=== PATIENT | male | born 1930 | race Caucasian/White ===

== ENCOUNTER 2017-07-20 01:50 | Emergency (ER) | payer MEDICARE, BC ==
[~2017-07-20] VITALS: Ht 170.2 cm; Wt 79.4 kg
[~2017-07-20 01:50] MED LIST: ALLO300T2 PO; ASPI-1152 PO; ATEN25TA PO; CELE200C PO; FINA5TAB3 PO; LOVA40TA2 PO; PANT40TA4 PO; TERA5CAP4 PO
[2017-07-20] MEDS ORDERED: ASPI81TA31 PO (02:07)
[2017-07-20] MEDS ORDERED: TERA5CAP4 PO (02:07)
[2017-07-20] MEDS ORDERED: ATOR40TA PO (02:07)
[2017-07-20] MEDS ORDERED: FINA5TAB3 PO (02:07)
[2017-07-20] MEDS ORDERED: ALLO300T2 PO (02:07)
[2017-07-20] MEDS ORDERED: KETOROLAC TROMETHAMINE 15 MG INJ IV ONE (03:00)
[2017-07-20] MEDS ORDERED: METOCLOPRAMIDE HCL 10 MG/2 ML VIAL IV ONE (03:00)
--- NOTE | 2017-07-20 03:38 | NUR ---
PT IN BED W/ SPOUSE AT BEDSIDE. PT IS A&OX4. PT HAS REGULAR UNLABORED BREATHING. ALL LABS DRAWN. NO MEDS GIVEN AT THIS TIME; HOWEVER, PT STATES SIGNIFICANTLY LESS ABDOMINAL PAIN.
[2017-07-20 03:41] LABS: BASOPHILS # (AUTO) 0.1 K/uL (0.0-8.0); BASOPHILS % (AUTO) 0.6 % (0.0-2.0); EOSINOPHILS # (AUTO) 0.1 K/uL (0.0-0.7); EOSINOPHILS % (AUTO) 0.8 % (0.0-7.0); HEMATOCRIT 41.3 % (36.7-47.1); HEMOGLOBIN 14.2 g/dL (12.5-16.3); LYMPHOCYTES # (AUTO) 0.6 K/uL (20.0-40.0); LYMPHOCYTES % (AUTO) 5.4 % (20.5-51.5); MEAN CORPUSCULAR HEMOGLOBIN 30.9 uug (23.8-33.4); MEAN CORPUSCULAR HGB CONC 34 g/dL (32.5-36.3); MONOCYTES # (AUTO) 0.3 K/uL (2.0-10.0); MONOCYTES % (AUTO) 2.6 % (0.0-11.0); NEUTROPHILS # (AUTO) 9.8 K/uL (1.8-8.9); NEUTROPHILS % (AUTO) 90.6 % (38.5-71.5); PLATELET COUNT (AUTO) 265 K/uL (152-348); RED BLOOD CELL COUNT(AUTO) 4.58 MIL/uL (4.06-5.63); WHITE BLOOD COUNT (AUTO) 10.8 K/uL (3.6-10.2)
[2017-07-20] MEDS ORDERED: METOCLOPRAMIDE HCL 10 MG/2 ML VIAL ONE (03:45)
[2017-07-20] MEDS ORDERED: KETOROLAC TROMETHAMINE 15 MG INJ ONE (03:45)
[2017-07-20 04:08] LABS: CARBON DIOXIDE 26 mmol/L (21-32); CHLORIDE 103 mmol/L (98-107); CREATININE 0.9 mg/dL (0.6-1.3); GLUCOSE 131 mg/dL (74-106); POTASSIUM 3.9 mmol/L (3.5-5.1); UREA NITROGEN, BLOOD 19 mg/dL (7-18)
[2017-07-20 04:09] LABS: *BILIRUBIN,URIN NEGATIVE (NEGATIVE); *BLOOD, URINE NEGATIVE (NEGATIVE); *CLARITY,URINE CLEAR (CLEAR); *COLOR,URINE YELLOW (YELLOW); *KETONES,URINE NEGATIVE (NEGATIVE); *PROTEIN,URINE NEGATIVE (NEGATIVE); *UROBILINOGEN,URINE 0.2 E.U./dl (NORMAL); LEUKOCYTE ESTERASE ,URINE NEGATIVE (NEGATIVE); NITRITE, URINE NEGATIVE (NEGATIVE); PH,URINE 7.5 (5.0-8.0); UGLUCOSE NEGATIVE (NEGATIVE)
[2017-07-20 04:14] LABS: ALANINE AMINOTRANSFERASE 33 U/L (16-63); ALKALINE PHOSPHATASE 91 U/L (50-136); ASPARTATE AMINOTRANSFERASE 29 U/L (15-37); BILIRUBIN,DIRECT 0.1 mg/dL (0.0-0.2); BILIRUBIN,TOTAL 0.5 mg/dL (0.2-1.0); LIPASE 111 U/L (73-393); TOTAL PROTEIN, SERUM 7.5 g/dL (6.4-8.2)
[2017-07-20 04:23] LABS: BACTERIA,URINE NONE SEEN /HPF (NONE SEEN); RBC,URINE 0-3 /HPF (0-3); SQUAMOUS EPITHELIAL CELL,UR FEW /HPF (NONE SEEN); URINE AMORPHOUS PHOSPHATES FEW /HPF; WBC,URINE 0-3 /HPF (0-3)
--- NOTE | 2017-07-20 05:37 | NUR ---
Patient discharged to home in stable conditon. Written and verbal after care instructions given. Patient verbalizes understanding of instructions.
[2017-07-20 05:39] VITALS: BP 140/18
== END 2017-07-20 05:38 | disposition home or self-care (01) ==
LOC: ER 01:53
DX: K56.50 Intestinal adhesions [bands], unspecified as to partial versus complete obstruction (principal); K40.90 Unilateral inguinal hernia, without obstruction or gangrene, not specified as recurrent; K42.9 Umbilical hernia without obstruction or gangrene; N40.0 Benign prostatic hyperplasia without lower urinary tract symptoms; I10 Essential (primary) hypertension; Z79.82 Long term (current) use of aspirin
CPT/HCPCS: 36415; 71045; 74176; 80048; 80076; 81001; 83605; 83690; 84484; 85025; 85730; 87040 ×2; 87086; 93005; 99285; A4663; 70030-TC; J1885; J2765

== ENCOUNTER 2017-08-21 09:51 | Emergency (ER) | payer MEDICARE, BC ==
[~2017-08-21] VITALS: Ht 167.6 cm; Wt 83.9 kg
[~2017-08-21 09:51] MED LIST changes: +ASPI81TA31 PO; +ATOR40TA PO
[2017-08-21] MEDS ORDERED: NITROGLYCERIN OINT 1 GM PACKET TP ONE ×2 (10:03→10:15)
--- NOTE | 2017-08-21 10:15 | NUR ---
[facility] WAS CALLED BY DR JACKSNO. CODE STEMI PROTOCOL STARTED.
--- NOTE | 2017-08-21 10:16 | NUR ---
LIST OF MEDS REVIEWED WITH PATIENT.
--- NOTE | 2017-08-21 10:18 | NUR ---
[facility] was called for pt's transfer due to ST elevation [place]. talked to BELLA from [facility]. according to her [facility] closed for [facility] [place] transfers. dr pace notified.
--- NOTE | 2017-08-21 10:18 | NUR ---
pt is in room #1b. dr pace evaluated the pt.
[2017-08-21 10:20] LABS: BASOPHILS % (AUTO) 0.6 % (0.0-2.0); EOSINOPHILS # (AUTO) 0.2 K/uL (0.0-0.7); EOSINOPHILS % (AUTO) 2.6 % (0.0-7.0); HEMATOCRIT 41.6 % (36.7-47.1); HEMOGLOBIN 13.8 g/dL (12.5-16.3); LYMPHOCYTES # (AUTO) 2.1 K/uL (20.0-40.0); LYMPHOCYTES % (AUTO) 27.8 % (20.5-51.5); MEAN CORPUSCULAR HEMOGLOBIN 29.9 uug (23.8-33.4); MEAN CORPUSCULAR HGB CONC 33 g/dL (32.5-36.3); MEAN CORPUSCULAR VOLUME 90.3 fL (73.0-96.2); MONOCYTES # (AUTO) 0.3 K/uL (2.0-10.0); MONOCYTES % (AUTO) 4.2 % (0.0-11.0); NEUTROPHILS % (AUTO) 64.8 % (38.5-71.5); PLATELET COUNT (AUTO) 196 K/uL (152-348); WHITE BLOOD COUNT (AUTO) 7.7 K/uL (3.6-10.2)
--- NOTE | 2017-08-21 10:25 | NUR ---
[facility] WAS CALLED FOR PT'S TRANSFER. PT'S PAPERWORK WAS FAXWED TO THEM. DR JACKSON TALKED TO TRANSFER CENTER INGOT WEIGHER.
[2017-08-21] MEDS ORDERED: MORPHINE SULFATE 4 MG/1 ML DISP.SYRIN ONE (10:27)
[2017-08-21] MEDS ORDERED: ONDANSETRON 4 MG/2 ML VIAL ONE (10:27)
[2017-08-21] MEDS ORDERED: ONDANSETRON IV *ER 4 MG/2 ML VIAL IV ONE (10:30)
[2017-08-21] MEDS ORDERED: HYDROMORPHONE 1 MG/1 ML DISP.SYRIN IV ONE ×2 (10:30→10:45)
[2017-08-21 10:33] LABS: CARBON DIOXIDE 24 mmol/L (21-32); CHLORIDE 104 mmol/L (98-107); CREATININE 0.9 mg/dL (0.6-1.3); GLUCOSE 150 mg/dL (74-106); POTASSIUM 3.6 mmol/L (3.5-5.1); UREA NITROGEN, BLOOD 22 mg/dL (7-18)
--- NOTE | 2017-08-21 10:40 | NUR ---
DR JACKSON TALKED TO [facility] RECOVERY OPERATOR HELPER. THEY ACCEPTIN PT. DR BECKMAN ACCEPTING THE PT. REPORT GIVEN TO [facility] TRANSFER SHARAD LOVE.
[2017-08-21] MEDS ORDERED: HYDROMORPHONE 2 MG/1 ML DISP.SYRIN ONE (10:43)
[2017-08-21 10:45] LABS: ALANINE AMINOTRANSFERASE 31 U/L (16-63); ALKALINE PHOSPHATASE 77 U/L (50-136); ASPARTATE AMINOTRANSFERASE 68 U/L (15-37); BILIRUBIN,DIRECT 0.1 mg/dL (0.0-0.2); BILIRUBIN,TOTAL 0.7 mg/dL (0.2-1.0); TOTAL PROTEIN, SERUM 6.7 g/dL (6.4-8.2)
[2017-08-21] MEDS ORDERED: HEPARIN SODIUM,PORCINE/PF 50 UNIT/5 ML SYR IV STA (10:53)
[2017-08-21 10:56] VITALS: BP 105/59
[2017-08-21] MEDS ORDERED: ASPIRIN 81 MG TAB.CHEW ONE (10:58)
[2017-08-21] MEDS ORDERED: HEPARIN SODIUM,PORCINE 5,000 UNITS/ML VIAL ONE (10:59)
[2017-08-21] MEDS ORDERED: ASPIRIN 81 MG TAB.CHEW PO ONE (11:00)
--- NOTE | 2017-08-21 11:08 | NUR ---
Chance hill in ED - 08/21/17 at 1113 by [facility] WAS CALLED FOR PT TRANSFER ACCORDING TO PT'S REQUEST AND DR RENETTA ARANGO. TALKED TO [employer]. [facility]'S PAPERWORK WAS FAXED TO THEM.
--- NOTE | 2017-08-21 11:19 | NUR ---
CRITICAL TRANSFER TEAM FROM [facility] TRANSFERED PT TO [facility]IA [facility]. DR JACKSON TALKED TO LATEX FASHIONS DESIGNER FROM [facility] TEAM.
== END 2017-08-21 11:26 | disposition short-term general hospital (02) ==
LOC: ER 09:51
DX: I21.9 Acute myocardial infarction, unspecified (principal); I10 Essential (primary) hypertension; Z79.82 Long term (current) use of aspirin; Z79.899 Other long term (current) drug therapy
CPT/HCPCS: 36415; 70030-TC; 71045; 85025; 85730; 86850; 86900; 86901; 93005; A4663; J1170; J1642; J1644; J2270; J2405

== ENCOUNTER 2018-05-22 14:44 | Emergency (ER) | payer MEDICARE, BC ==
[~2018-05-22] VITALS: Ht 167.6 cm; Wt 83.9 kg
[~2018-05-22 14:44] MED LIST changes: -ASPI81TA31 PO; -ATEN25TA PO; -CELE200C PO; -LOVA40TA2 PO; -PANT40TA4 PO
--- NOTE | 2018-05-22 15:25 | NUR ---
SCALP INJURY CLEANED AND DRESSED, PT D/C'D HOME, ACI GIVEN. PT AMBULATED W/O DIFF/TOOK ALL BELONGINGS.
[2018-05-22 15:26] VITALS: BP 139/68
== END 2018-05-22 15:26 | disposition home or self-care (01) ==
LOC: ER 14:44
DX: S00.01XA Abrasion of scalp, initial encounter (principal); I10 Essential (primary) hypertension; Z79.82 Long term (current) use of aspirin; Z79.899 Other long term (current) drug therapy; W22.8XXA Striking against or struck by other objects, initial encounter; Y93.89 Activity, other specified; Y92.89 Other specified places as the place of occurrence of the external cause; Y99.8 Other external cause status
CPT/HCPCS: A4663

== ENCOUNTER 2019-03-13 00:53 | Inpatient (IN) | payer MEDICARE, BC ==
[~2019-03-13] VITALS: Ht 167.6 cm; Wt 79.4 kg
[2019-03-13] MEDS ORDERED: CLOP75TA15 PO (01:17)
[2019-03-13] MEDS ORDERED: LOSA25TA27 PO (01:17)
--- NOTE | 2019-03-13 01:22 | NUR ---
DR. BERKOWITZ AT BEDSIDE FOR MSE.
[2019-03-13] MEDS ORDERED: ONDANSETRON ODT 4 MG TAB.RAPDIS SL ONE (01:45)
[2019-03-13] MEDS ORDERED: HYDROCODONE/APAP 5-325MG TABLET ONE (01:45)
[2019-03-13] MEDS ORDERED: ONDANSETRON ODT 4 MG TAB.RAPDIS ONE (01:45)
[2019-03-13] MEDS ORDERED: HYDROCODONE/APAP 5-325MG TABLET PO ONE (01:45)
--- NOTE | 2019-03-13 02:10 | NUR ---
PATIENT C/O BACK WHILE LAYING DOWN IN BED, REQUESTED PAIN MEDICATION. DR. BERKOWITZ NOTIFIED AND NEW ORDERS RECEIVED. PATIENT THEN SAT UP IN CHAIR AND STATED THAT PAIN IN BACK IS BETTER NOW AND REFUSED IV MEDICATION AT THIS TIME. DR. BERKOWITZ AWARE. WILL CONTINUE TO MONITOR PATIENT.
[2019-03-13] MEDS ORDERED: HYDROMORPHONE 1 MG/1 ML DISP.SYRIN IV ONE ×2 (02:15→04:15)
[2019-03-13 02:19] LABS: BASOPHILS % (AUTO) 0.5 % (0.0-2.0); EOSINOPHILS # (AUTO) 0.1 K/uL (0.0-0.7); EOSINOPHILS % (AUTO) 1.4 % (0.0-7.0); HEMATOCRIT 38.6 % (36.7-47.1); HEMOGLOBIN 13.3 g/dL (12.5-16.3); LYMPHOCYTES # (AUTO) 1.1 K/uL (20.0-40.0); LYMPHOCYTES % (AUTO) 13.1 % (20.5-51.5); MEAN CORPUSCULAR HEMOGLOBIN 32.3 uug (23.8-33.4); MEAN CORPUSCULAR HGB CONC 35 g/dL (32.5-36.3); MEAN CORPUSCULAR VOLUME 93.6 fL (73.0-96.2); MONOCYTES # (AUTO) 0.4 K/uL (2.0-10.0); MONOCYTES % (AUTO) 4.4 % (0.0-11.0); NEUTROPHILS % (AUTO) 80.6 % (38.5-71.5); PLATELET COUNT (AUTO) 210 K/uL (152-348); RED BLOOD CELL COUNT(AUTO) 4.13 MIL/uL (4.06-5.63); WHITE BLOOD COUNT (AUTO) 8.7 K/uL (3.6-10.2)
[2019-03-13 02:22] LABS: POTASSIUM 3.8 mmol/L (3.5-5.1)
[2019-03-13 02:27] LABS: BILIRUBIN,DIRECT 0.1 mg/dL (0.0-0.2); BILIRUBIN,TOTAL 0.6 mg/dL (0.2-1.0); TOTAL PROTEIN, SERUM 7.1 g/dL (6.4-8.2)
[2019-03-13] MEDS ORDERED: HYDROMORPHONE 1 MG/1 ML DISP.SYRIN ONE ×2 (02:29→04:22)
[2019-03-13] MEDS ORDERED: SWABABLE VALVE TRANSFER SET EA MC ONE (02:53)
[2019-03-13] MEDS ORDERED: IV NORMAL SALINE 250 ML IV ONE (02:54)
[2019-03-13] MEDS ORDERED: IOHEXOL 300MG/ML 100 ML INFUS..BTL ONE (02:54)
--- NOTE | 2019-03-13 04:00 | NUR ---
DR. TERRY PAGED, AWAITING CALL BACK.
[2019-03-13] MEDS ORDERED: IV D5W-0.45% NS +20 KCL 1,000 ML IV ONE ×2 (04:13→04:32)
[2019-03-13] MEDS ORDERED: ONDANSETRON 4 MG/2 ML VIAL IV ONE (04:15)
[2019-03-13] MEDS ORDERED: ONDANSETRON 4 MG/2 ML VIAL ONE (04:22)
--- NOTE | 2019-03-13 04:41 | NUR ---
Pt. admitted to M/S , under care of Dr. MORALEZ Belongs List completed.
[2019-03-13 05:28] LABS: *BILIRUBIN,URIN NEGATIVE (NEGATIVE); *BLOOD, URINE NEGATIVE (NEGATIVE); *CLARITY,URINE CLEAR (CLEAR); *COLOR,URINE YELLOW (YELLOW); *KETONES,URINE NEGATIVE (NEGATIVE); *UROBILINOGEN,URINE 0.2 E.U./dl (NORMAL); LEUKOCYTE ESTERASE ,URINE NEGATIVE (NEGATIVE); NITRITE, URINE NEGATIVE (NEGATIVE); PH,URINE 5.5 (5.0-8.0); UGLUCOSE NEGATIVE (NEGATIVE)
--- NOTE | 2019-03-13 06:56 | NUR ---
REPORT GIVEN TO ONCOMING NURSE. PATIENT IS ASLEEP, NO ACUTE DISTRESS NOTED.
--- NOTE | 2019-03-13 07:19 | NUR ---
Report received from night rn. as reported pt. admitted already just waiting for rn. to be taken up. to room 317.
--- NOTE | 2019-03-13 07:51 | NUR ---
Patient taken up to room 317 bedside report given to Kayden Purcell, who was endorse calling back Dr. Waldrop for pain medications orders. Patient left AAOx4. Vitasls stable. Iv line patent. Hr 50, 118/6096% on RA.
[2019-03-13 08:00] VITALS: BP 151/67
--- NOTE | 2019-03-13 08:00 | NUR ---
RECEIVED PATIENT FROM ER. PATIENT DENIES ANY PAIN AND DISCOMFORT. VITAL SIGNS TAKEN. PATIENT SITUATED IN BED.
[2019-03-13] MEDS ORDERED: DIATR MEGLU/DIATRIZOATE SODIUM 30 ML SOLUTION ONE (11:00)
[2019-03-13 12:25] VITALS: BP 152/62
[2019-03-13] MEDS ORDERED: ACETAMINOPHEN 650 MG SUPP.RECT RC PRN (12:30)
[2019-03-13] MEDS ORDERED: ENALAPRILAT DIHYDRATE 1.25 MG/1 ML VIAL IV PRN (12:30)
[2019-03-13] MEDS: IV D5 1/2 NS 1000 ML 1,000 ML IV PRN (12:37)
[2019-03-13] MEDS: MORPHINE SULFATE 2 MG/1 ML DISP.SYRIN IV PRN ×3 (12:38→22:59)
[2019-03-13] MEDS: ONDANSETRON 4 MG/2 ML VIAL IV PRN ×3 (12:55→22:59)
[2019-03-13] MEDS ORDERED: DIATR MEGLU/DIATRIZOATE SODIUM 30 ML SOLUTION PO ONE (13:31)
[2019-03-13 13:37] LABS: BASOPHILS % (AUTO) 0.5 % (0.0-2.0); EOSINOPHILS # (AUTO) 0.1 K/uL (0.0-0.7); EOSINOPHILS % (AUTO) 1.3 % (0.0-7.0); HEMATOCRIT 41.3 % (36.7-47.1); HEMOGLOBIN 13.4 g/dL (12.5-16.3); LYMPHOCYTES # (AUTO) 1.1 K/uL (20.0-40.0); LYMPHOCYTES % (AUTO) 14.1 % (20.5-51.5); MEAN CORPUSCULAR HEMOGLOBIN 30.2 uug (23.8-33.4); MEAN CORPUSCULAR HGB CONC 32 g/dL (32.5-36.3); MEAN CORPUSCULAR VOLUME 93.2 fL (73.0-96.2); MONOCYTES # (AUTO) 0.3 K/uL (2.0-10.0); MONOCYTES % (AUTO) 4.6 % (0.0-11.0); NEUTROPHILS % (AUTO) 79.5 % (38.5-71.5); PLATELET COUNT (AUTO) 211 K/uL (152-348); RED BLOOD CELL COUNT(AUTO) 4.43 MIL/uL (4.06-5.63); WHITE BLOOD COUNT (AUTO) 7.5 K/uL (3.6-10.2)
[2019-03-13 13:46] LABS: CARBON DIOXIDE 26 mmol/L (21-32); CHLORIDE 104 mmol/L (98-107); CREATININE 0.8 mg/dL (0.6-1.3); GLUCOSE 129 mg/dL (74-106); POTASSIUM 3.9 mmol/L (3.5-5.1); UREA NITROGEN, BLOOD 12 mg/dL (7-18)
[2019-03-13 13:58] LABS: ALANINE AMINOTRANSFERASE 20 U/L (16-63); ALKALINE PHOSPHATASE 67 U/L (50-136); ASPARTATE AMINOTRANSFERASE 23 U/L (15-37); BILIRUBIN,TOTAL 0.7 mg/dL (0.2-1.0); CHOLESTEROL 129 mg/dL (<200); HDL CHOLESTEROL 62 mg/dL (40-60); PHOSPHOROUS 3.3 mg/dL (2.5-4.9); TOTAL PROTEIN, SERUM 6.8 g/dL (6.4-8.2); TRIGLYCERIDES 69 MG/DL (30-150)
[2019-03-13 13:59] LABS: THYROID STIMULATING HORMONE 4.892 mIU/mL (0.358-3.740)
[2019-03-13 16:37] VITALS: BP 138/60
--- NOTE | 2019-03-13 18:21 | NUR ---
PATIENT RESTED INTERMITTENTLY THROUGHOUT THE DAY. PAIN MANAGEMENT PROVIDED. PATIENT AMBULATED THROUGHOUT THE DAY AROUND UNIT WITH DAUGHTER NO ACUTE DISTRESS NOTED. SAFETY MEASURES PROVIDED.
[2019-03-13 20:05] VITALS: BP 139/70
[2019-03-14 00:30] VITALS: BP 128/68
[2019-03-14] MEDS: IV D5 1/2 NS 1000 ML 1,000 ML IV PRN (03:16)
[2019-03-14 04:00] VITALS: BP 117/53
--- NOTE | 2019-03-14 05:38 | NUR ---
Patient slept intermittently t/o shift. Patient c/o abdominal pain. Morphine given, stated relief. Patient IVF running on the right AC. Patent and intact. Remains NPO. Vital signs stable. No BM on my shift but patient states he is passing some gas. BRP. Good urine output. All meds given as ordered. All needs met. Safety and comfort measures maintained t/o shift.
--- NOTE | 2019-03-14 06:38 | NUR ---
Patient reports moderate loose stool. Patient states he feels relieved and denies pain at the moment. Will closely monitor.
--- NOTE | 2019-03-14 07:30 | NUR ---
Patient calm and comfortable with no sings of distress; patient stating he has been having bowel movements and no longer has pain; patient requesting to go home. Patient educated that attending MD will be notified. Patient will continue to be monitored.
[2019-03-14] MEDS ORDERED: PANTOPRAZOLE SODIUM 40 MG VIAL IV SCH (09:00)
[2019-03-14] MEDS ORDERED: ACETAMINOPHEN 325 MG TABLET PO PRN (12:00)
[2019-03-14 12:09] VITALS: BP 140/61
[2019-03-14 16:23] VITALS: BP 126/54
[2019-03-14] MEDS ORDERED: ATOR20TA PO (17:16)
--- NOTE | 2019-03-14 18:07 | NUR ---
Patient calm and comfortable ; MD had placed orders for diet to be advanced as tolerated ; Patient had clear liquid at lunch, patient tolerate well; [facility] UTILITY SERVICE WORKER surgeon agreed patient could be discharged if he could tolerate a soft diet; Patient given soft diet and had no complaints of pain or discomfort; MD notified ; MD Placed orders for discharge as Diagnostic test showed resolved bowel obstruction. Patient with stable vital signs and complaints of pain; patient requesting to be sent home . Orders received and carried out. Family at patient bedside ready to be taken home in private car.
== END 2019-03-14 18:18 | disposition home or self-care (01) | DRG 389 ==
LOC: ER 01:07 → MEDSURG3 07:28 → TELE3 14:35 → MEDSURG3 03-14 14:10
PROVIDERS: ADMIT Internal Medicine; ATTEND Internal Medicine
DX: K56.600 Partial intestinal obstruction, unspecified as to cause (principal); D68.59 Other primary thrombophilia; N13.8 Other obstructive and reflux uropathy; I25.10 Atherosclerotic heart disease of native coronary artery without angina pectoris; E78.5 Hyperlipidemia, unspecified; I25.2 Old myocardial infarction; I11.9 Hypertensive heart disease without heart failure; Z96.653 Presence of artificial knee joint, bilateral; Z95.1 Presence of aortocoronary bypass graft; Z68.28 Body mass index [BMI] 28.0-28.9, adult; Z95.5 Presence of coronary angioplasty implant and graft; Z79.899 Other long term (current) drug therapy; Z79.02 Long term (current) use of antithrombotics/antiplatelets; Z90.49 Acquired absence of other specified parts of digestive tract; N32.3 Diverticulum of bladder; N40.1 Benign prostatic hyperplasia with lower urinary tract symptoms
CPT/HCPCS: 36415; 70030-TC; 71045; 74018; 74250; 82378; 83605; 83690; 83735; 84100; 84153; 84443; 85025; 85610; 93005; A4663; C9113; G0378; J1170; J2270; J2405; J3490; J7050; Q0162; Q9963; Q9967